=== PATIENT | male | born 1960 | race Caucasian/White ===

== ENCOUNTER 2019-01-05 13:53 | Emergency (ER) | payer BC ==
[2019-01-05] MEDS: HYDROCODONE/APAP (5/325) TAB PO (14:42)
[2019-01-05] MEDS: DIPHTH/TET/ACEL PERTUSS (ADULT) 0.5 ML VIAL IM* (14:43)
== END 2019-01-05 15:53 | disposition home or self-care (01) ==
LOC: FTE 13:53
DX: S61.311A Laceration without foreign body of left index finger with damage to nail, initial encounter (principal); S61.313A Laceration without foreign body of left middle finger with damage to nail, initial encounter; S61.315A Laceration without foreign body of left ring finger with damage to nail, initial encounter; S61.317A Laceration without foreign body of left little finger with damage to nail, initial encounter; W29.2XXA Contact with other powered household machinery, initial encounter; Y92.9 Unspecified place or not applicable; Z23 Encounter for immunization; Z87.891 Personal history of nicotine dependence
CPT/HCPCS: 12001; 73130-LT; 90471; 90715; 99283-25

== ENCOUNTER 2019-01-07 11:32 | Emergency (ER) | payer BC | END 2019-01-07 13:40 | disposition home or self-care (01) | LOC: FTE 11:32 | DX: Z48.01 Encounter for change or removal of surgical wound dressing (principal); F17.210 Nicotine dependence, cigarettes, uncomplicated | CPT/HCPCS: 99281; Z7502 ==

== ENCOUNTER 2019-01-12 08:57 | Emergency (ER) | payer BC ==
[2019-01-12] MEDS: IBUPROFEN 800 MG TAB PO (09:48)
== END 2019-01-12 10:16 | disposition home or self-care (01) ==
LOC: FTE 10:16
DX: Z48.02 Encounter for removal of sutures (principal); F17.210 Nicotine dependence, cigarettes, uncomplicated
CPT/HCPCS: 99281; Z7502

== ENCOUNTER 2019-01-12 16:42 | Emergency (ER) | payer BC | END 2019-01-12 18:50 | disposition home or self-care (01) | LOC: FTE 16:42 | DX: Z48.01 Encounter for change or removal of surgical wound dressing (principal); F17.210 Nicotine dependence, cigarettes, uncomplicated | CPT/HCPCS: 99281; Z7502 ==